=== PATIENT | male | born 1985 | race Caucasian/White ===

== ENCOUNTER 2018-11-11 07:56 | Outpatient (CLI) | payer OTHER, SELFPAY | END 2018-11-11 08:16 | PROVIDERS: Visit Provider Student in an Organized Health Care Education/Training Program | DX: R05 Cough (principal) | CPT/HCPCS: 87449 ==

== ENCOUNTER 2019-04-18 12:49 | Outpatient (CLI) | payer OTHER, SELFPAY ==
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
== END 2019-04-18 13:09 ==
PROVIDERS: Visit Provider Student in an Organized Health Care Education/Training Program
DX: S46.902A Unspecified injury of unspecified muscle, fascia and tendon at shoulder and upper arm level, left arm, initial encounter (principal)
CPT/HCPCS: 73030

== ENCOUNTER 2019-10-18 08:31 | Outpatient (CLI) | payer OTHER, SELFPAY ==
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
== END 2019-10-18 08:51 ==
PROVIDERS: Visit Provider Physician Assistant
DX: R04.2 Hemoptysis (principal)
CPT/HCPCS: 71046

== ENCOUNTER 2019-12-11 15:33 | Outpatient (REF) | payer OTHER, SELFPAY ==
[2019-12-11 20:12] LABS: Calculated LDL 111 mg/dL (<100); Cholesterol 185 mg/dL (<200); HDL Cholesterol 45 mg/dL (40-60); Triglyceride 147 mg/dL (<150)
== END 2019-12-11 15:53 ==
LOC: NCHCN 15:33
PROVIDERS: Visit Provider Family Medicine
DX: Z13.220 Encounter for screening for lipoid disorders (principal)
CPT/HCPCS: 80061

== ENCOUNTER 2021-07-18 22:35 | Emergency (ER) | payer OTHER, SELFPAY | END 2021-07-18 22:49 | LOC: ER 22:48 | DX: R69 Illness, unspecified (principal) ==

== ENCOUNTER 2021-07-18 22:44 | Outpatient (CLI) | payer OTHER, SELFPAY ==
[2021-07-19 00:30] LABS: COVID-19 PCR Negative (Negative)
== END 2021-07-18 22:45 | disposition home or self-care (01) ==
PROVIDERS: Student in an Organized Health Care Education/Training Program; Visit Provider Physician Assistant
DX: Z20.822 Contact with and (suspected) exposure to COVID-19 (principal)
CPT/HCPCS: 87635

== ENCOUNTER 2022-01-15 16:40 | Outpatient (REF) | payer OTHER, SELFPAY ==
[2022-01-15 19:20] LABS: Calculated LDL 102 mg/dL (<100); Cholesterol 174 mg/dL (<200); HDL Cholesterol 61 mg/dL (40-60); Triglyceride 58 mg/dL (<150)
== END 2022-01-15 16:41 | disposition home or self-care (01) ==
LOC: NCHCN 16:40
PROVIDERS: Visit Provider Family Medicine
DX: Z00.00 Encounter for general adult medical examination without abnormal findings (principal)
CPT/HCPCS: 80061

== ENCOUNTER 2022-12-27 18:25 | Outpatient (REF) | payer OTHER, SELFPAY ==
[2023-01-03 17:39] LABS: Source: Right Kidney
== END 2022-12-27 18:26 | disposition home or self-care (01) ==
LOC: LBN 18:25
PROVIDERS: Visit Provider Urology
DX: N20.0 Calculus of kidney (principal)
CPT/HCPCS: 82365

== ENCOUNTER 2023-07-30 21:41 | Emergency (ER) | payer OTHER, SELFPAY ==
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
[2023-07-30 22:20] VITALS: BP 132/75; PULSE 62; RESP 18; TEMP 36.5; O2SAT 100
[2023-07-30 22:57] VITALS: PULSE 58; RESP 18; O2SAT 100
== END 2023-07-30 23:00 | disposition home or self-care (01) ==
PROVIDERS: Emergency Provider Nurse Practitioner Acute Care
DX: R51.9 Headache, unspecified (principal); Y04.2XXA Assault by strike against or bumped into by another person, initial encounter; Y92.238 Other place in hospital as the place of occurrence of the external cause; Y99.0 Civilian activity done for income or pay; S00.83XA Contusion of other part of head, initial encounter; S06.0X0A Concussion without loss of consciousness, initial encounter
CPT/HCPCS: 99282

== ENCOUNTER → 2023-08-29 03:01 | Outpatient (CLI) | payer OTHER, SELFPAY ==
--- NOTE | 2023-08-29 06:30 | DI.MRI_ITS ---
Exam(s) MR BRAIN WO EXAM: MR BRAIN WO CLINICAL HISTORY: persistent headache,CONCUSSION,S06.0XAA TECHNIQUE: Multiplanar multisequence MRI of the brain was performed. COMPARISON: No exams were available for comparison FINDINGS: CEREBRAL PARENCHYMA: There is no evidence of intracranial hemorrhage, mass effect, or shift of midline structures. There are no extra-axial fluid collections. Ventricles are not enlarged or shifted. There is no significant focal signal abnormality in the cerebellar hemispheres nor within the [place], m idbrain, and thalami. There is no abnormal signal abnormality in the periventricular white matter. There is no significant focal signal abnormality evident on diffusion imaging to suggest acute ischem ic event. PITUITARY GLAND: No mass nor parasellar abnormality. No obvious abnormality in the cavernous sinuses. FLOW VOIDS: The expected flow void are noted. No evidence of obvious aneurysm nor obvious vascular ma lformation. PARANASAL SINUSES: There is circumferential mucosal thickening in the left sphenoid sinus, not associ ated with a fluid level. Right sphenoid sinus is clear. Maxillary sinuses unremarkable. Frontal si nuses unremarkable although there is some mucosal thickening in ethmoidal air cells on the right side as well as the right frontoethmoidal recess. Right mastoid air cells are clear. A small amount of fluid in the lowest mastoid air cell on the left side. Right mastoids unremarkable. ORBITS: No obvious findings. IMPRESSION: No significant intracranial findings on this noninfused MRI scan of the brain. Incidentally noted is some mucosal thickening in the left sphenoid sinus, right frontoethmoidal reces s, right ethmoidal air cells, and small effusion in left mastoid air cells. DATA REPOSITORY:
== END ==
PROVIDERS: Visit Provider Nurse Practitioner Family
DX: S06.0XAA Concussion with loss of consciousness status unknown, initial encounter (principal); G44.52 New daily persistent headache (NDPH); X58.XXXA Exposure to other specified factors, initial encounter
CPT/HCPCS: 70551

== ENCOUNTER 2024-01-14 16:22 | Outpatient (REF) | payer OTHER, SELFPAY ==
[2024-01-14 15:49] LABS: Calculated LDL 91 mg/dL (<100); Cholesterol 156 mg/dL (<200); HDL Cholesterol 56 mg/dL (40-60); Hemoglobin A1C 5.4 % (<5.7); Triglyceride 47 mg/dL (<150)
== END 2024-01-14 16:23 | disposition home or self-care (01) ==
LOC: NCHCN 16:22
PROVIDERS: Visit Provider Family Medicine
DX: Z00.00 Encounter for general adult medical examination without abnormal findings (principal); Z13.220 Encounter for screening for lipoid disorders; Z13.1 Encounter for screening for diabetes mellitus
CPT/HCPCS: 80061; 83036

== ENCOUNTER 2025-01-18 17:17 | Outpatient (REF) | payer OTHER, SELFPAY ==
[2025-01-17 23:06] LABS: Calculated LDL 110 mg/dL (<100); Cholesterol 189 mg/dL (<200); HDL Cholesterol 65 mg/dL (>or=40); Triglyceride 72 mg/dL (<150)
[2025-01-17 23:08] LABS: Hemoglobin A1C 5.4 % (<5.7)
== END 2025-01-18 17:18 | disposition home or self-care (01) ==
LOC: NCHCN 17:17
PROVIDERS: Visit Provider Student in an Organized Health Care Education/Training Program
DX: Z13.220 Encounter for screening for lipoid disorders (principal); Z13.1 Encounter for screening for diabetes mellitus
CPT/HCPCS: 80061; 83036

== ENCOUNTER 2025-09-12 09:39 | Outpatient (REF) | payer OTHER, SELFPAY ==
[2025-09-12 08:43] LABS: Abs Immature Grans 0.00 10^3/uL (0.0-0.06); HCT 45.7 % (40.0-50.0); HGB 15.8 g/dL (13.5-17.5); Immature Grans % 0.0 %; MCH 30.2 pg (27.0-33.0); MCHC 34.6 % (32.0-36.0); MCV 87 fL (80-95); MPV 9.7 fL (8.0-11.0); Platelet Count 194 10^3/uL (130-400); RBC 5.24 10^6/uL (4.36-5.78); RDW 12.0 % (11.8-14.1); RDW-SD 38.5 fL; WBC 4.80 10^3/uL (4.4-10.8)
[2025-09-12 09:07] LABS: Cholesterol 154 mg/dL (<200); HDL Cholesterol 52 mg/dL (>or=40)
[2025-09-12 09:36] LABS: Hemoglobin A1C 5.5 % (<5.7)
[2025-09-12 18:29] LABS: Hepatitis C Ab w Rflx HCV PCR Negative (Negative)
[2025-09-12 18:30] LABS: HIV-1/2 Ag & Ab Screen Negative (Negative)
== END 2025-09-12 09:40 | disposition home or self-care (01) ==
LOC: NCHCN 09:39
PROVIDERS: PCP Student in an Organized Health Care Education/Training Program; Visit Provider Student in an Organized Health Care Education/Training Program
DX: Z87.442 Personal history of urinary calculi (principal); Z13.220 Encounter for screening for lipoid disorders; Z13.6 Encounter for screening for cardiovascular disorders; Z11.59 Encounter for screening for other viral diseases; Z11.4 Encounter for screening for human immunodeficiency virus [HIV]; Z13.1 Encounter for screening for diabetes mellitus
CPT/HCPCS: 80061; 86803; 87389; 83036; 85025

== ENCOUNTER → 2025-10-29 07:07 | Outpatient (CLI) | payer OTHER, SELFPAY ==
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
--- NOTE | 2025-10-29 | DI.RAD_ITS ---
Exam(s) XR FOOT LT COMPLETE EXAM: XR FOOT LT COMPLETE CLINICAL HISTORY: SKIN LESIONS FOOT, ? FOREIGN BODY,L98.9. TECHNIQUE: 2D digital imaging was performed. COMPARISON: No exams were available for comparison FINDINGS: 3 views No evidence of fracture or diastasis of the Lisfranc joint. Bone density normal. No osseous lesions. Great toe metatarsophalangeal joint unremarkable. No pes planus. No radiopaque foreign body evident. IMPRESSION: No acute osseous findings in the foot and no radiopaque foreign bodies. DATA REPOSITORY: RADIATION DOSE DELIVERED:
== END ==
LOC: DI 07:07
PROVIDERS: PCP Student in an Organized Health Care Education/Training Program; Visit Provider Student in an Organized Health Care Education/Training Program
DX: L98.9 Disorder of the skin and subcutaneous tissue, unspecified (principal); M25.562 Pain in left knee
CPT/HCPCS: 73562; 73630